=== PATIENT | male | born 1960 | race Two or more races ===

== ENCOUNTER 2025-08-05 07:26 | Inpatient (IN) | payer OTHER ==
[~2025-08-05] VITALS: Ht 167.6 cm; Wt 69.9 kg
[2025-08-05 08:28] LABS: PLATELET COUNT (AUTO) 208 K/uL (150-450); RED BLOOD CELL COUNT(AUTO) 4.13 MIL/uL (4.5-6.0); RED CELL DISTRIBUTION WIDTH 13.4 % (11.5-15.0); WHITE BLOOD COUNT (AUTO) 17.7 K/uL (4.3-11.0)
[2025-08-05 08:39] LABS: FIBRINOGEN ACTIVITY 219.0 Mg/dL (213-485)
[2025-08-05 08:55] LABS: CALCIUM, SERUM 9.7 mg/dL (8.5-10.1); CREATININE 2.2 mg/dL (0.6-1.3); LACTIC ACID 10.8 mmol/L (0.4-2.0); SODIUM SERUM 141 mmol/L (136-145); UREA NITROGEN, BLOOD 31 mg/dL (7-18)
[2025-08-05 08:58] LABS: INR 1.75 (0.91-1.10)
[2025-08-05 09:02] LABS: ASPARTATE AMINOTRANSFERASE 146 U/L (15-37); TOTAL PROTEIN, SERUM 9.9 g/dL (6.4-8.2)
[2025-08-05 09:04] LABS: CREATINE KINASE, TOTAL 1088.0 U/L (39-308)
[2025-08-05] MEDS: IV NS 0.9% 1,000 ML BAG IV ONE (09:28)
[2025-08-05] MEDS ORDERED: IV NS 0.9% 1,000 ML IV PRN (10:00)
[2025-08-05] MEDS ORDERED: Z GUARD REMEDY 4 OZ OINT TP PRN (10:00)
[2025-08-05] MEDS ORDERED: MAG HYDROX/AL HYDROX/SIMETH 30 ML UDC PO PRN (10:00)
[2025-08-05] MEDS ORDERED: MAGNESIUM HYDROXIDE 30 ML UDC PO PRN (10:00)
[2025-08-05] MEDS ORDERED: ONDANSETRON HCL/PF 4 MG/2 ML VIAL IVP PRN (10:00)
[2025-08-05] MEDS ORDERED: ACETAMINOPHEN 325 MG TABLET PO PRN (10:00)
[2025-08-05 10:17] LABS: APPEARANCE,URINE SLIGHTLY CLOUDY (CLEAR); BLOOD, URINE 1+ Ery/uL (NEGATIVE); LEUKOCYTE ESTERASE ,URINE 1+ (NEGATIVE); NITRITE, URINE NEGATIVE (NEGATIVE); UGLUCOSE NEGATIVE (NEGATIVE)
[2025-08-05] MEDS ORDERED: CEFTRIAXONE 1GM BAG (ER ONLY) 50 ML IV ONE (10:40)
[2025-08-05] MEDS: CEFTRIAXONE 1 G in IV D5W 50 ML IV SCH (10:44)
[2025-08-05 10:45] LABS: AMPHETAMINE, URINE NEGATIVE (NEGATIVE); BARBITURATE, URINE NEGATIVE (NEGATIVE); BENZODIAZEPINE, URINE NEGATIVE (NEGATIVE); CANNABINOID, URINE NEGATIVE (NEGATIVE); COCCAINE, URINE NEGATIVE (NEGATIVE); OPIATE, URINE NEGATIVE (NEGATIVE)
[2025-08-05 10:57] LABS: ADD URINE CULTURE YES; SQUAMOUS EPITHELIAL CELL,UR Rare /HPF (None Seen)
[2025-08-05 12:00] VITALS: BP 103/80; TEMP 98; O2SAT 97
[2025-08-05] MEDS: IV NS 0.9% 1,000 ML IV PRN (13:04)
[2025-08-05 16:00] VITALS: BP 104/72; TEMP 98.6; O2SAT 99
[2025-08-05] MEDS: ALBUMIN 25% 12.5 GM/50 ML BOTTLE IV ONE (17:05)
[2025-08-05 20:00] VITALS: BP 103/66; TEMP 98.5; O2SAT 99
[2025-08-06 04:00] VITALS: BP 140/80; TEMP 98.3; O2SAT 100
[2025-08-06 07:14] LABS: PLATELET COUNT (AUTO) 132 K/uL (150-450); RED BLOOD CELL COUNT(AUTO) 3.14 MIL/uL (4.5-6.0); RED CELL DISTRIBUTION WIDTH 13.7 % (11.5-15.0); WHITE BLOOD COUNT (AUTO) 12.1 K/uL (4.3-11.0)
[2025-08-06 07:51] LABS: LACTIC ACID 1.3 mmol/L (0.4-2.0)
[2025-08-06 07:56] LABS: ASPARTATE AMINOTRANSFERASE 120.0 U/L (15-37); CALCIUM, SERUM 8.1 mg/dL (8.5-10.1); CREATININE 0.9 mg/dL (0.6-1.3); PHOSPHORUS 2.6 mg/dL (2.5-4.9); SODIUM SERUM 139.0 mmol/L (136-145); TOTAL PROTEIN, SERUM 7.7 g/dL (6.4-8.2); UREA NITROGEN, BLOOD 28.0 mg/dL (7-18)
[2025-08-06] MEDS: PANTOPRAZOLE 40 MG VIAL IV SCH (08:09)
[2025-08-06 12:00] VITALS: BP 140/80; TEMP 98.2; O2SAT 100
[2025-08-06 16:18] LABS: CREATINE KINASE, TOTAL 1502.0 U/L (39-308)
[2025-08-06 16:27] LABS: SERUM AMMONIA 112.0 umol/L (11-32)
[2025-08-06] MEDS ORDERED: LACTULOSE 10 G/15 ML UDC (PYXIS) PO PRN (17:00)
[2025-08-06 20:00] VITALS: BP 129/80; TEMP 98.1; O2SAT 97
[2025-08-07 04:00] VITALS: BP 122/73; TEMP 98.1; O2SAT 97
[2025-08-07 08:35] LABS: CREATINE KINASE, TOTAL 741.0 U/L (39-308)
[2025-08-07 08:36] VITALS: BP 120/69; TEMP 98.1; O2SAT 98
[2025-08-07 08:50] LABS: ASPARTATE AMINOTRANSFERASE 108.0 U/L (15-37); CALCIUM, SERUM 8.2 mg/dL (8.5-10.1); CREATININE 0.7 mg/dL (0.6-1.3); SODIUM SERUM 141.0 mmol/L (136-145); TOTAL PROTEIN, SERUM 7.7 g/dL (6.4-8.2); UREA NITROGEN, BLOOD 13.0 mg/dL (7-18)
[2025-08-07] MEDS: PANTOPRAZOLE 40 MG TABLET.DR PO SCH (09:10)
[2025-08-07 09:14] LABS: PLATELET COUNT (AUTO) 119 K/uL (150-450); RED BLOOD CELL COUNT(AUTO) 3.61 MIL/uL (4.5-6.0); RED CELL DISTRIBUTION WIDTH 13.7 % (11.5-15.0); WHITE BLOOD COUNT (AUTO) 8.3 K/uL (4.3-11.0)
[2025-08-07] MEDS: POTASSIUM CHLORIDE 20 MEQ TAB.PRT.SR PO SCH (09:41)
[2025-08-07 16:00] VITALS: BP_SYST 110; BP_SYST 148; BP_DIAS 76; BP_DIAS 79; TEMP 98.1; TEMP 98.5; O2SAT 100; O2SAT 98
[2025-08-07 20:00] VITALS: BP 123/79; TEMP 98.4; O2SAT 97
[2025-08-08] VITALS: BP 122/74; TEMP 98.6; O2SAT 97
[2025-08-08 04:00] VITALS: BP 126/78; TEMP 97.9; O2SAT 97
[2025-08-08 07:25] LABS: PLATELET COUNT (AUTO) 126 K/uL (150-450); RED BLOOD CELL COUNT(AUTO) 3.92 MIL/uL (4.5-6.0); RED CELL DISTRIBUTION WIDTH 13.4 % (11.5-15.0); WHITE BLOOD COUNT (AUTO) 3.6 K/uL (4.3-11.0)
[2025-08-08 07:45] LABS: SERUM AMMONIA 38.0 umol/L (11-32)
[2025-08-08 07:46] LABS: ASPARTATE AMINOTRANSFERASE 135.0 U/L (15-37); CALCIUM, SERUM 8.4 mg/dL (8.5-10.1); CREATININE 0.7 mg/dL (0.6-1.3); SODIUM SERUM 139.0 mmol/L (136-145); TOTAL PROTEIN, SERUM 8.0 g/dL (6.4-8.2); UREA NITROGEN, BLOOD 12.0 mg/dL (7-18)
[2025-08-08 07:48] LABS: CREATINE KINASE, TOTAL 339.0 U/L (39-308)
[2025-08-08 08:00] VITALS: BP 114/81; TEMP 98.1; O2SAT 96
[2025-08-08] MEDS: LACTULOSE 10 G/15 ML UDC (PYXIS) PO SCH (13:44)
[2025-08-08 16:00] VITALS: BP 120/80; TEMP 98.4; O2SAT 96
[2025-08-09] VITALS: BP 120/76; TEMP 98.2; O2SAT 99
[2025-08-09 08:00] VITALS: BP 124/73; TEMP 98.2; O2SAT 98
[2025-08-09] MEDS: LACTULOSE 20 G/30 ML UDC PO SCH (12:32)
[2025-08-09] MEDS ORDERED: CEPH-570 PO (14:12)
[2025-08-09] MEDS ORDERED: LACT10SO4 PO (14:12)
[2025-08-09] MEDS ORDERED: PANT40TA49 PO (14:12)
[2025-08-09 16:00] VITALS: BP 124/73; TEMP 98.2; O2SAT 98
== END 2025-08-09 17:50 | disposition home or self-care (01) | DRG 720 ==
LOC: EDBD 07:37 → ER 07:37 → ICUOV 11:16 → TELE-TD 11:35 → TELE1 16:10 → MEDSG1 08-06 11:53
PROVIDERS: ADMIT Nurse Practitioner Acute Care; ATTEND Nurse Practitioner Acute Care
DX: A41.9 Sepsis, unspecified organism (principal); K76.7 Hepatorenal syndrome; N17.0 Acute kidney failure with tubular necrosis; G92.8 Other toxic encephalopathy; M62.82 Rhabdomyolysis; I62.03 Nontraumatic chronic subdural hemorrhage; N39.0 Urinary tract infection, site not specified; B96.89 Other specified bacterial agents as the cause of diseases classified elsewhere; E11.9 Type 2 diabetes mellitus without complications; I10 Essential (primary) hypertension; E86.0 Dehydration; E87.20 Acidosis, unspecified; E86.9 Volume depletion, unspecified; R74.01 Elevation of levels of liver transaminase levels; Z98.890 Other specified postprocedural states; R68.0 Hypothermia, not associated with low environmental temperature
CPT/HCPCS: 36415; 70450-TC; 71045-TC; 72125-TC; 80048-TC; 80053-TC; 80076-TC; 81001; 82140-TC; 82550-TC; 82553; 82962-TC; 83605-TC; 83735-TC; 84100-TC; 84439-TC; 84443-TC; 84484-TC; 85025-TC; 85378-TC; 85385-TC; 85730-TC; 87040-TC; 87081-TC; 87086-TC; 87186-TC; 97112-TC; 97116-TC; 97530-TC; A4223; A6403; G0378; J0696; J2470; J7030; J7050; J7060; P9047